=== PATIENT | male | born 1950 | race Caucasian/White ===

== ENCOUNTER 2019-06-28 15:48 | Observation (INO) ==
[2019-06-28 18:04] LABS: Basophils # (auto) 0.02 K/uL (0-0.2); Basophils % (auto) 0.3 %; Eosinophils # (auto) 0.16 K/uL (0-0.5); Eosinophils % (auto) 2.4 %; Hemoglobin 15.9 g/dL (14.0-18.0); Immature Granulocytes # (auto) 0.03 K/uL (0.00-0.02); Immature Granulocytes % (auto) 0.4 %; Lymphocytes # (auto) 2.23 K/uL (1.2-3.4); Lymphocytes % (auto) 33.1 %; Mean Corpuscular Hemoglobin 31.9 pg (25-34); Mean Corpuscular Hgb Conc 34.6 g/dL (32-36); Mean Corpuscular Volume 92.2 fL (80-100); Mean Platelet Volume 9.2 fL (7.4-10.4); Monocytes # (auto) 0.79 K/uL (0.11-0.59); Monocytes % (auto) 11.7 %; Neutrophils # (auto) 3.51 K/uL (1.4-6.5); Neutrophils % (auto) 52.1 %; Platelet Count 255 K/uL (130-400); RDW Coefficient of Variation 13.1 % (11.5-14.5); Red Blood Count 4.99 M/uL (4.7-6.1); White Blood Count 6.74 K/uL (4.8-10.8)
[2019-06-28 18:18] LABS: Alanine Aminotransferase 33 U/L (12-78); Albumin Level 4.1 gm/dl (3.4-5.0); Aspartate Aminotransferase 18 U/L (15-37); BUN Creatinine Ratio 11.8 (10-20); Blood Urea Nitrogen 17 mg/dl (7-18); Calcium 9.2 mg/dl (8.5-10.1); Carbon Dioxide 27 mmol/L (21-32); Chloride 104 mmol/L (98-107); Creatinine Clr Calc Pharmacy 54.3 ml/min; Est GFR (African American) 55.3; Est GFR (Non-African American) 47.7; Glucose 92 mg/dl (70-99); Magnesium 2.1 mg/dl (1.8-2.4); Potassium 3.6 mmol/L (3.5-5.1); Sodium 136 mmol/L (136-145)
[2019-06-28 18:20] LABS: Partial Thromboplastin Ratio 0.9; Partial Thromboplastin Time 24.1 Seconds (21.0-31.0); Prothrombin Time 9.9 Seconds (9.0-12.0)
[2019-06-28 18:23] LABS: Albumin Globulin Ratio 1.1 (0.9-2); Alkaline Phosphatase 42 U/L (45-117); Bilirubin,Total 0.9 mg/dl (0.2-1); Globulin 3.6 gm/dl (2.5-4.0); Total Protein 7.7 gm/dl (6.4-8.2); Troponin I < 0.015 ng/ml (0-0.045)
--- NOTE | 2019-06-28 18:38 | XRay Report ---
XR chest 1V portable CLINICAL HISTORY: 69 years-old Male presenting with stroke. TECHNIQUE: Portable upright AP view of the chest was obtained. COMPARISON: 09/25/2012. FINDINGS: Cardiomediastinal silhouette normal. No focal opacity. No large effusion or pneumothorax. Osseous str uctures normal. Upper abdomen normal. IMPRESSION: 1. No acute cardiopulmonary disease. ACT 112: Negative or not required by law. Electronically signed by: Mohsen Cali M.D. 06/28/2019 6:36 PM
--- NOTE | 2019-06-28 18:41 | CT Scan Report ---
CT head/brain wo con CLINICAL HISTORY: 69 years-old Male presenting with Stroke evaluation, headache. TECHNIQUE: Multidetector CT imaging of the head was performed without the use of intravenous contrast . IV contrast: None. One or more dose lowering techniques were used consistent with the principles of ALARA (as low as reasonably achievable), including automatic exposure control, mA or kV adjustment t o individual patient size, and/or use of iterative reconstruction. COMPARISON: None. CT DOSE (mGy.cm): The estimated cumulative dose is 537.48 mGy.cm. FINDINGS: Building Services Coordinator topogram: Unremarkable. Ventricles and sulci normal in size. No hemorrhage. Brain parenchyma normal in appearance with preser malathi verma-white differentiation. No acute territorial infarct. No mass effect or midline shift. No ext ra-axial fluid collection. Paranasal sinuses and mastoid air cells clear. Calvarium intact. IMPRESSION: 1. No acute intracranial abnormality. ACT 112: Negative or not required by law. Electronically signed by: Mohsen Cali M.D. 06/28/2019 6:39 PM
[2019-06-28] MEDS ORDERED: ASPIRIN CHEW 324 MG PO STA (18:42)
--- NOTE | 2019-06-28 20:03 | History & Physical Report ---
Date of Service June 28, 2019 Assessment & Plan (1) TIA (transient ischemic attack): left-sided amaurosis fugax as presentation hypertension, slightly elevated hyperlipidemia, statin noncompliance CRI, creatinine at baseline Ongoing tobacco abuse OBS PCU Neurochecks Aspirin for stroke prevention for now. MRI/MRA brain, TTE, carotid Dopplers for stroke work-up Update lipid profile, patient agreeable to resuming home statin Rx Neurology consult RE transient monocular blindness left permissive hypertension for now until acute/recent stroke ruled out Nicotine gum as needed DVT prophylaxis.. Heparin subcu Full code History of Present Illness Chief Complaint: Transient vision loss left Primary Care Provider: All Ramirez MD History obtained from patient, family, and records. Medical history significant for hypertension, hyperlipidemia, GERD, CRI (baseline creatinine 1.4), intermittent tobacco abuse. Recent confinement September 2012 for chest pain. Yesterday, patient had fleeting visual loss on the left eye on 2 occasions. As if he was "looking through a dark screen." Usual frontal headache as per patient. No previous episodes. No chest pain, no S OB. Patient directed by currency exchange specialist to ER this afternoon for further evaluation. Medical History as above Surgical History : Nasolacrimal duct tube placement, cataract surgeries Family History : Diabetes, high blood pressure Personal/Social history : Few cigarettes from time to time, occasional EtOH intake, [employer] parking employee Allergies Allergy/AdvReac Type Severity Reaction Status Date / Time No Known Allergies AdvReac Unknown ANAPHYLAXIS Unverified 06/28/19 20:06 Home Medications Home Medications Medication Instructions Recorded Confirmed Type bupropion HCl 200 mg PO BID 06/28/19 06/28/19 History citalopram 40 mg PO DAILY 06/28/19 06/28/19 History fluticasone propionate 2 spray INTRANASAL DAILY PRN 06/28/19 06/28/19 History hydrochlorothiazide 25 mg PO DAILY 06/28/19 06/28/19 History lisinopril 20 mg PO DAILY 06/28/19 06/28/19 History omeprazole 20 mg PO QAM 06/28/19 06/28/19 History aspirin [Ecotrin Low Strength] 81 mg PO QAM 30 Days #30 tab 06/29/19 Rx atorvastatin 40 mg PO HS 30 Days #30 tab 06/29/19 Rx clopidogrel 75 mg PO QAM 21 Days #21 tab 06/29/19 Rx Past Med/Surg History Medical History No pertinent past medical history Surgical History No pertinent past surgical history Social History Communication Ability: Effective Beliefs That Will Affect Care: None Current Living Situation: Spouse Feels Safe at Home: Yes Safety Concerns: Feels Safe At This Time Smoking Status: Former smoker Tobacco Type: smokeless tobacco ; Do You Dip or Chew Tobacco: Yes ; Tobacco Cessation Education Requested by Patient: No Hx Alcohol Use: Yes Alcohol type: beer Hx Substance Use: No Review of Systems Review of Systems: As per HPI, all 10 systems reviewed, all other ROS negative Physical Exam Physical Exam: GENERAL: Comfortable, slightly anxious, obese, no respiratory distress SKIN: Normal color, warm HEENT: Partial alopecia, [place] palpebral conjunctivae, no ptosis, dry buccal mucosa NECK : Supple, short neck, no tenderness CHEST : CTA, no tenderness HEART : RRR, no obvious murmurs ABDOMEN: Some distention, nontender EXTREMITIES : No LE swelling/tenderness, no other conspicuous deformities noted NEUROLOGIC : Coherent, VA WNL, no EOM limitation, no facial asymmetry, no other gross focality Results & Data Vital Signs (Past 12 Hours) Vital Signs Temp Pulse Pulse Resp BP BP Pulse Ox 06/28/19 17:49 67 16 146/84 H 98 06/28/19 15:53 36.9 C 76 20 150/94 H 97 Laboratory Results Laboratory Results WBC 6.74 K/uL (4.8-10.8) 06/28/19 17:43 RBC 4.99 M/uL (4.7-6.1) 06/28/19 17:43 Hgb 15.9 g/dL (14.0-18.0) 06/28/19 17:43 Hct 46.0 % (42-52) 06/28/19 17:43 MCV 92.2 fL (80-100) 06/28/19 17:43 MCH 31.9 pg (25-34) 06/28/19 17:43 MCHC 34.6 g/dL (32-36) 06/28/19 17:43 RDW Std Deviation 44.0 fL (36.4-46.3) 06/28/19 17:43 RDW Coeff of Kezia 13.1 % (11.5-14.5) 06/28/19 17:43 Plt Count 255 K/uL (130-400) 06/28/19 17:43 MPV 9.2 fL (7.4-10.4) 06/28/19 17:43 Immature Gran % (Auto) 0.4 % 06/28/19 17:43 Neut % (Auto) 52.1 % 06/28/19 17:43 Lymph % (Auto) 33.1 % 06/28/19 17:43 [place] % (Auto) 11.7 % 06/28/19 17:43 Eos % (Auto) 2.4 % 06/28/19 17:43 Baso % (Auto) 0.3 % 06/28/19 17:43 Immature Gran # (Auto) 0.03 K/uL (0.00-0.02) H 06/28/19 17:43 Neut # (Auto) 3.51 K/uL (1.4-6.5) 06/28/19 17:43 Lymph # (Auto) 2.23 K/uL (1.2-3.4) 06/28/19 17:43 [place] # (Auto) 0.79 K/uL (0.11-0.59) H 06/28/19 17:43 Eos # (Auto) 0.16 K/uL (0-0.5) 06/28/19 17:43 Baso # (Auto) 0.02 K/uL (0-0.2) 06/28/19 17:43 PT 9.9 Seconds (9.0-12.0) 06/28/19 17:43 INR 1.0 (0.9-1.1) 06/28/19 17:43 APTT 24.1 Seconds (21.0-31.0) 06/28/19 17:43 PTT Ratio 0.9 06/28/19 17:43 Sodium 136 mmol/L (136-145) 06/28/19 17:43 Potassium 3.6 mmol/L (3.5-5.1) 06/28/19 17:43 Chloride 104 mmol/L (98-107) 06/28/19 17:43 Carbon Dioxide 27 mmol/L (21-32) 06/28/19 17:43 Anion Gap 5.0 (3-11) 06/28/19 17:43 BUN 17 mg/dl (7-18) 06/28/19 17:43 Creatinine 1.46 mg/dl (0.6-1.4) H 06/28/19 17:43 Est Cr Clr Drug Dosing 54.3 ml/min 06/28/19 17:43 Est GFR ( Amer) 55.3 06/28/19 17:43 Est GFR (Non-Af Amer) 47.7 06/28/19 17:43 BUN/Creatinine Ratio 11.8 (10-20) 06/28/19 17:43 Glucose 92 mg/dl (70-99) 06/28/19 17:43 Calcium 9.2 mg/dl (8.5-10.1) 06/28/19 17:43 Magnesium 2.1 mg/dl (1.8-2.4) 06/28/19 17:43 Total Bilirubin 0.9 mg/dl (0.2-1) 06/28/19 17:43 AST 18 U/L (15-37) 06/28/19 17:43 ALT 33 U/L (12-78) 06/28/19 17:43 Alkaline Phosphatase 42 U/L (45-117) L 06/28/19 17:43 Troponin I < 0.015 ng/ml (0-0.045) 06/28/19 17:43 Total Protein 7.7 gm/dl (6.4-8.2) 06/28/19 17:43 Albumin 4.1 gm/dl (3.4-5.0) 06/28/19 17:43 Globulin 3.6 gm/dl (2.5-4.0) 06/28/19 17:43 Albumin/Globulin Ratio 1.1 (0.9-2) 06/28/19 17:43 Blood Type A Positive 06/28/19 17:43 Antibody Screen NEGATIVE 06/28/19 17:[address] head: No acute intracranial abnormality Chest x-ray : No acute cardiopulmonary disease EKG as per my interpretation : Rate 65, NSR, normal axis, T wave flattening inferiorly
[2019-06-28] MEDS ORDERED: ATORVASTATIN 20 MG TAB PO SCH (21:00)
[2019-06-28] MEDS ORDERED: PROMETHAZINE HCL 12.5 MG in SODIUM CHLORIDE 0.9% 50 ML IV PRN (21:21)
[2019-06-28] MEDS ORDERED: PHARMACIST DISCHARGE MED REC CONSULT PRN (21:21)
[2019-06-28] MEDS ORDERED: LORazepam 0.25 MG/0.5 ML VIAL IV PRN (21:21)
[2019-06-28] MEDS ORDERED: ACETAMINOPHEN 325 MG TAB PO PRN (21:21)
[2019-06-28] MEDS ORDERED: NSS + 20MEQ KCL 20 MEQ/1,000 ML BAG IV ONE (21:21)
[2019-06-28] MEDS ORDERED: TRAMADOL HCL 50 MG TABLET PO PRN (21:21)
--- NOTE | 2019-06-28 21:43 | Emergency Department Note ---
Entered by Sue Mcfarlane acting as a scribe for History of Present Illness General Chief complaint: Visual Disturbance Stated complaint: FLOATERS IN LT EYE Time Seen by Provider: 06/28/19 17:35 Source: patient History of Present Illness Onset (ago): day(s) 1 Location: eyes Pain Consistency: + intermittent Maximum Pain Intensity: 0 Current Pain Intensity: 0 Exacerbated By: + none Associated symptoms: + denies other symptoms (denies numbness and tingling) and + other (visual disturbances); no weakness Treatments prior to arrival: none The patient is a 69 year old male who presents to the Emergency Room with complaints of visual disturbances that occurred last night. He reports that everything went black in his left eye for a few seconds. This lasted less than a minute, but prompted him to visit his eye doctor. The patient visited his insurance office manager today, Dr. Cisse, who was concerned for TIA for the patient. He notes that he did have his left eye dilated while at his appointment. He denies numbness, tingling, and weakness. Home Medications Home Medications Medication Instructions Recorded Confirmed Type bupropion HCl 200 mg PO BID 06/28/19 06/28/19 History citalopram 40 mg PO DAILY 06/28/19 06/28/19 History fluticasone propionate 2 spray INTRANASAL DAILY PRN 06/28/19 06/28/19 History hydrochlorothiazide 25 mg PO DAILY 06/28/19 06/28/19 History lisinopril 20 mg PO DAILY 06/28/19 06/28/19 History omeprazole 20 mg PO QAM 06/28/19 06/28/19 History Allergies Allergy/AdvReac Type Severity Reaction Status Date / Time No Known Allergies AdvReac Unknown ANAPHYLAXIS Unverified 06/28/19 20:06 Past Med/Surg History Medical History No pertinent past medical history Surgical History No pertinent past surgical history Social History Communication Ability: Effective Beliefs That Will Affect Care: None Current Living Situation: Spouse Feels Safe at Home: Yes Safety Concerns: Feels Safe At This Time Smoking Status: Former smoker Tobacco Type: smokeless tobacco ; Do You Dip or Chew Tobacco: Yes ; Tobacco Cessation Education Requested by Patient: No Hx Alcohol Use: Yes Alcohol type: beer Hx Substance Use: No Review of Systems See HPI for pertinent positives & negatives. and A total of 10 systems reviewed and were otherwise negative Physical Exam Vital Signs Vital Signs - 24 hr 06/28/19 15:53 06/28/19 17:49 Temperature 36.9 C Temperature Source Oral Pulse Rate 76 Pulse Rate [Apical] 67 Respiratory Rate 20 16 Respiratory Effort / Characteristics Non-Labored Respiratory Depth Normal Respiratory Pattern Regular Blood Pressure 150/94 H Blood Pressure [Left Arm] 146/84 H Blood Pressure Mean 112 Blood Pressure Mean [Left Arm] 104 Pulse Oximetry 97 98 Oxygen Delivery Method Room Air Room Air Sepsis Recent Fever Within 48 Hours No Sepsis Action Taken by Nursing No Action Required GENERAL: He is oriented to person, place, and time. He appears well-developed and well-nourished. He does not appear distressed. HENT: Exam performed. - Head: Normocephalic and atraumatic. - Right Ear: External ear normal. No mastoid tenderness. - Left Ear: External ear normal. No mastoid tenderness. - Mouth/Throat: The oropharynx is clear and moist. No trismus in the jaw. No dental abscesses or uvula swelling. No oropharyngeal exudate or tonsillar abscesses. EYES: Left pupil is 4mm and reactive. Eye was previously dilated by insurance office manager. Right pupil was 2 mm and reactive. Conjunctivae and EOM are n ormal. Right eye exhibits no discharge. Left eye exhibits no discharge. No scleral icterus. NECK: Normal range of motion. Neck supple. No JVD present. No spinous process tenderness present. No carotid bruit present. No rigidity. No tracheal deviation and normal range of motion present. No Brudzinski's sign and no Kernig's sign noted. CV: Normal rate, regular rhythm, normal heart sounds and intact distal pulses. There is no peripheral edema. Palpable radial pulses bue. PULM/CHEST: Effort normal and breath sounds normal. No respiratory distress. No stridor. He has no wheezes. He has no rales. - Chest Wall: He exhibits no tenderness. ABD: The abdomen is soft. Bowel sounds are normal. He has no distension. No mass is present. There is no tenderness. There is no rebound, no guarding, no Garcia 's sign and no tenderness at McBurney's point. Rovsig negative. MUSC/SKEL: Normal range of motion. There is no peripheral edema, tenderness or deformity. LYMPH: No cervical adenopathy. NEURO: NIHSS: 0. He is alert and oriented to person, place, and time. He has normal strength. No cranial nerve deficit or sensory deficit. Coordination and gait normal. GCS eye subscore is 4. GCS verbal subscore is 5. GCS motor subscore is 6. Cerebellar tests wnl. SKIN: Skin is warm and dry. He is not diaphoretic. PSYCH: He has a normal mood and affect. Behavior is normal. Judgment and thought content normal. Course Course 173: Past medical records reviewed. The patient was evaluated in room A04B. A complete history and physical exam was performed. 183: I updated the patient on lab and imaging results. His vital signs are stable and labs within normal limits. The patient was given Aspirin PO. 1845: I spoke to Brian Mooney, who agreed to take over care of the patient. The patient verbally expressed understanding and agreement of the treatment plan. The patient will be evaluated for further treatment by Brian Jj. Administered Medications Atorvastatin Calcium (Lipitor) 20 mg PO HS PAT Stop: 07/28/19 20:59 Last Admin: 06/28/19 22:22 Dose: 20 mg Documented by: [id number] Bupropion HCl (Wellbutrin-Sr) 200 mg PO BID PAT Stop: 07/28/19 21:20 Last Admin: 06/28/19 22:21 Dose: 200 mg Documented by: [id number] Heparin Sodium (Porcine) (Heparin Sodium (Porcine)) 5,000 units SQ Q8 PAT Stop: 07/28/19 21:59 Last Admin: 06/28/19 22:21 Dose: 5,000 units Documented by: [id number] Cosigned by: [id number] Potassium Chloride/Sodium Chloride (Normal Saline W/20 Meq Kcl) 20 meq in 1,000 mls @ 60 mls/hr IV .[id number] ONE Stop: 06/29/19 14:00 Last Admin: 06/28/19 22:20 Dose: 60 mls/hr Documented by: [id number] Discontinued Medications Aspirin (Aspirin) 324 mg PO NOW STA Stop: 06/28/19 18:43 Last Admin: 06/28/19 18:46 Dose: 324 mg Documented by: [id number] Medical Decision Making Medical Records Attestation: I reviewed the patient's medical records. Home Medications Current Medication List: was personally reviewed by me Laboratory Data Attestation: I reviewed the patient's lab results. Result diagrams: 06/28/19 17:43 06/28/19 17:43 Lab Results 06/28/19 06/28/19 06/28/19 Range/Units 17:43 17:43 17:43 WBC 6.74 (4.8-10.8) K/uL RBC 4.99 (4.7-6.1) M/uL Hgb 15.9 (14.0-18.0) g/dL Hct 46.0 (42-52) % MCV 92.2 (80-100) fL MCH 31.9 (25-34) pg MCHC 34.6 (32-36) g/dL RDW Std Deviation 44.0 (36.4-46.3) fL RDW Coeff of Kezia 13.1 (11.5-14.5) % Plt Count 255 (130-400) K/uL MPV 9.2 (7.4-10.4) fL Immature Gran % (Auto) 0.4 % Neut % (Auto) 52.1 % Lymph % (Auto) 33.1 % [place] % (Auto) 11.7 % Eos % (Auto) 2.4 % Baso % (Auto) 0.3 % Immature Gran # (Auto) 0.03 H (0.00-0.02) K/uL Neut # (Auto) 3.51 (1.4-6.5) K/uL Lymph # (Auto) 2.23 (1.2-3.4) K/uL [place] # (Auto) 0.79 H (0.11-0.59) K/uL Eos # (Auto) 0.16 (0-0.5) K/uL Baso # (Auto) 0.02 (0-0.2) K/uL PT 9.9 (9.0-12.0) Seconds INR 1.0 (0.9-1.1) APTT 24.1 (21.0-31.0) Seconds PTT Ratio 0.9 Sodium 136 (136-145) mmol/L Potassium 3.6 (3.5-5.1) mmol/L Chloride 104 (98-107) mmol/L Carbon Dioxide 27 (21-32) mmol/L Anion Gap 5.0 (3-11) BUN 17 (7-18) mg/dl Creatinine 1.46 H (0.6-1.4) mg/dl Est Cr Clr Drug Dosing 54.3 ml/min Est GFR ( Amer) 55.3 Est GFR (Non-Af Amer) 47.7 BUN/Creatinine Ratio 11.8 (10-20) Glucose 92 (70-99) mg/dl Calcium 9.2 (8.5-10.1) mg/dl Magnesium 2.1 (1.8-2.4) mg/dl Total Bilirubin 0.9 (0.2-1) mg/dl AST 18 (15-37) U/L ALT 33 (12-78) U/L Alkaline Phosphatase 42 L (45-117) U/L Troponin I < 0.015 (0-0.045) ng/ml Total Protein 7.7 (6.4-8.2) gm/dl Albumin 4.1 (3.4-5.0) gm/dl Globulin 3.6 (2.5-4.0) gm/dl Albumin/Globulin Ratio 1.1 (0.9-2) Blood Type Antibody Screen 06/28/19 Range/Units 17:43 WBC (4.8-10.8) K/uL RBC (4.7-6.1) M/uL Hgb (14.0-18.0) g/dL Hct (42-52) % MCV (80-100) fL MCH (25-34) pg MCHC (32-36) g/dL RDW Std Deviation (36.4-46.3) fL RDW Coeff of Kezia (11.5-14.5) % Plt Count (130-400) K/uL MPV (7.4-10.4) fL Immature Gran % (Auto) % Neut % (Auto) % Lymph % (Auto) % [place] % (Auto) % Eos % (Auto) % Baso % (Auto) % Immature Gran # (Auto) (0.00-0.02) K/uL Neut # (Auto) (1.4-6.5) K/uL Lymph # (Auto) (1.2-3.4) K/uL [place] # (Auto) (0.11-0.59) K/uL Eos # (Auto) (0-0.5) K/uL Baso # (Auto) (0-0.2) K/uL PT (9.0-12.0) Seconds INR (0.9-1.1) APTT (21.0-31.0) Seconds PTT Ratio Sodium (136-145) mmol/L Potassium (3.5-5.1) mmol/L Chloride (98-107) mmol/L Carbon Dioxide (21-32) mmol/L Anion Gap (3-11) BUN (7-18) mg/dl Creatinine (0.6-1.4) mg/dl Est Cr Clr Drug Dosing ml/min Est GFR ( Amer) Est GFR (Non-Af Amer) BUN/Creatinine Ratio (10-20) Glucose (70-99) mg/dl Calcium (8.5-10.1) mg/dl Magnesium (1.8-2.4) mg/dl Total Bilirubin (0.2-1) mg/dl AST (15-37) U/L ALT (12-78) U/L Alkaline Phosphatase (45-117) U/L Troponin I (0-0.045) ng/ml Total Protein (6.4-8.2) gm/dl Albumin (3.4-5.0) gm/dl Globulin (2.5-4.0) gm/dl Albumin/Globulin Ratio (0.9-2) Blood Type A Positive Antibody Screen NEGATIVE Imaging Data Radiologist's Impression: Radiology results as stated below per my review and the radiologist's interpretation: CT head/brain wo con CLINICAL HISTORY: 69 years-old Male presenting with Stroke evaluation, headache. TECHNIQUE: Multidetector CT imaging of the head was performed without the use of intravenous contrast. IV contrast: None. One or more dose lowering techniques were used consistent with the principles of ALARA (as low as reasonably achievab le), including automatic exposure control, mA or kV adjustment to individual patient size, and/or use of iterative reconstruction. COMPARISON: None. CT DOSE (mGy.cm): The estimated cumulative dose is 537.48 mGy.cm. FINDINGS: Shearing Supervisor topogram: Unremarkable. Ventricles and sulci normal in size. No hemorrhage. Brain parenchyma normal in appearance with preserved verma-white differentiation. No acute territorial infarct. No mass effect or midline shift. No extra-axial fluid collection. Paranasal sinuses and mastoid air cells clear. Calvarium intact. IMPRESSION: 1. No acute intracranial abnormality. ACT 112: Negative or not required by law. Electronically signed by: Mohsen Cali M.D. 06/28/2019 6:39 PM XR chest 1V portable CLINICAL HISTORY: 69 years-old Male presenting with stroke. TECHNIQUE: Portable upright AP view of the chest was obtained. COMPARISON: 09/25/2012. FINDINGS: Cardiomediastinal silhouette normal. No focal opacity. No large effusion or pneumothorax. Osseous structures normal. Upper abdomen normal. IMPRESSION: 1. No acute cardiopulmonary disease. ACT 112: Negative or not required by law. Electronically signed by: Mohsen Cali M.D. 06/28/2019 6:36 PM ECG Data Attestation: I personally reviewed and interpreted this ECG as follows: Indication: + other (vision changes) Rate (beats per minute): 65 Rhythm: + sinus rhythm ECG Intervals/blocks: + Normal QT, + Normal HI and + Normal QT-c ECG ST segments: + ST depression (in lead 3 only) Blood Pressure Blood Pressure Findings: Elevated blood pressure Blood Pressure Disposition: further management by hospitalist Impression & Plan TIA (transient ischemic attack) Discharge Plan Visit Data *Final* Discharge Date/Time: 06/28/19 20:42 Chief Complaint: Visual Disturbance Stated Complaint: FLOATERS IN LT EYE ED Provider: Matt Kaufman Discharge Problem: TIA (transient ischemic attack) Patient Disposition: Admitted As Inpatient Discharge Instructions Interventions: ED Discharge Assessment Last Done: 06/28/19 20:42 The scribe's documentation has been prepared under my direction and personally reviewed by me in its entirety. I confirm that the note above accurately reflects all work, treatment, procedures, and medical decision making performed by me.
[2019-06-28] MEDS: HEPARIN SOD 5,000 UNIT/0.5 ML VIAL SQ SCH (22:21)
[2019-06-28] MEDS: BuPROPion SR 100 MG TABCR PO SCH (22:21)
[2019-06-29] MEDS: HEPARIN SOD 5,000 UNIT/0.5 ML VIAL SQ SCH ×2 (05:37→14:32)
--- NOTE | 2019-06-29 07:09 | Ultrasound Report ---
CAROTID ARTERY ULTRASOUND CLINICAL HISTORY: Transient ischemic attack. COMPARISON STUDY: None. TECHNIQUE: Real-time, grayscale, and color Doppler sonography of the carotid and vertebral arteries w as performed. Images were viewed in the transverse and longitudinal planes. FINDINGS: There is mild atherosclerotic plaque. Velocity measurements are listed below. COMMON CAROTID PEAK SYSTOLIC VELOCITY (CM/S): RIGHT 84 LEFT 80 ICA PEAK SYSTOLIC VELOCITY (CM/S): RIGHT 65 LEFT 79 Systolic ratios between the internal to common carotid arteries were normal. Antegrade flow is seen in the vertebral arteries. The external carotid arteries are patent. Blood pressure in the right arm measured 122/72. Blood pressure in the left arm measured 125/76. IMPRESSION: No evidence for a hemodynamically significant stenosis. ACT 112: Negative or not required by law. Electronically signed by: Armin Andres M.D. 06/29/2019 7:07 AM
[2019-06-29 07:10] LABS: Basophils # (auto) 0.02 K/uL (0-0.2); Basophils % (auto) 0.4 %; Eosinophils # (auto) 0.13 K/uL (0-0.5); Eosinophils % (auto) 2.7 %; Immature Granulocytes # (auto) 0.02 K/uL (0.00-0.02); Immature Granulocytes % (auto) 0.4 %; Lymphocytes # (auto) 1.78 K/uL (1.2-3.4); Lymphocytes % (auto) 37.3 %; Mean Corpuscular Hemoglobin 31.9 pg (25-34); Mean Corpuscular Hgb Conc 34.1 g/dL (32-36); Mean Corpuscular Volume 93.6 fL (80-100); Monocytes # (auto) 0.66 K/uL (0.11-0.59); Monocytes % (auto) 13.8 %; Neutrophils # (auto) 2.16 K/uL (1.4-6.5); Neutrophils % (auto) 45.4 %; Platelet Count 196 K/uL (130-400); RDW Coefficient of Variation 13.1 % (11.5-14.5); RDW Standard Deviation 44.9 fL (36.4-46.3); White Blood Count 4.77 K/uL (4.8-10.8)
--- NOTE | 2019-06-29 07:21 | Magnetic Resonance Report ---
Brain MRI WITHOUT CONTRAST HISTORY: Transient ischemic attack. Left vision abnormality. TECHNIQUE: Multiplanar multisequence MRI of the brain was performed without the use of contrast. COMPARISON STUDY: Head CT 06/28/2019. FINDINGS: There are no areas of restricted diffusion to suggest acute infarction. The midline structu res are intact. The paranasal sinuses are clear. The mastoid air cells are clear. The ventricles and sulci are within normal limits for age. There is no mass, hematoma, midline shift. The major vascular flow-voids at the skull base are well maintained. Bilateral lens removal. Otherwise, the orbits are unremarkable. IMPRESSION: No acute intracranial abnormality. ACT 112: Negative or not required by law. Electronically signed by: Maximilian Sandhu M.D. 06/29/2019 7:20 AM
--- NOTE | 2019-06-29 07:26 | Magnetic Resonance Report ---
MRA OF THE INTRACRANIAL CIRCULATION WITHOUT CONTRAST CLINICAL HISTORY: Transient ischemic attack. COMPARISON STUDY: Head CT June 28, 2019. TECHNIQUE: Utilizing a 1.5 Merlyn magnet and 3-D [id number] technique, unenhanced MRA of the intra cranial circulation was obtained. FINDINGS: The bilateral M1, M2, A1 and A2 segments are patent. There is no intracranial aneurysm. The re is no evidence for dissection or intraluminal thrombus. There is severe stenosis of the distal lef t vertebral artery. The right vertebral artery is dominant. There is a large right posterior communic ating artery. An anterior communicating artery is noted. The right A1 segment is diminutive, likely h ypoplastic. IMPRESSION: 1. No abrupt vessel cut off, intraluminal thrombus or intracranial aneurysm. 2. 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 Dominant right vertebral artery. 3. 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 ACT 112: Negative or not required by law. Electronically signed by: Armin Andres M.D. 06/29/2019 7:25 AM
[2019-06-29 07:40] LABS: BUN Creatinine Ratio 12.9 (10-20); Calcium 9.1 mg/dl (8.5-10.1); Est GFR (African American) 56.7; Est GFR (Non-African American) 48.9; Potassium 4.1 mmol/L (3.5-5.1)
[2019-06-29 07:53] LABS: Thyroid Stimulating Hormone 1.59 uIu/ml (0.300-4.500)
[2019-06-29] MEDS ORDERED: CITALOPRAM 40 MG TAB PO SCH (09:00)
[2019-06-29] MEDS ORDERED: PANTOprazole 40 MG TAB PO SCH (09:00)
[2019-06-29] MEDS ORDERED: ASPIRIN 81 MG ECTAB PO SCH (09:00)
[2019-06-29] MEDS: BuPROPion SR 100 MG TABCR PO SCH (10:02)
[2019-06-29] MEDS ORDERED: ACETAMINOPHEN 325 MG TAB PO PRN (10:05)
--- NOTE | 2019-06-29 14:12 | Neurology Consultation ---
Date of Consultation June 29, 2019 Assessment & Plan (1) TIA (transient ischemic attack): 1. MRI brain - no acute findings 2. carotid doppler - no significant stenosis 3. MRA brain severe stenosis L vert 4. TTE ordered but not done 5. PT/OT speech no current needs 6. start aspirin 81 mg and plavix 75 mg daily x 3 weeks then aspirin 81 mg for a life time 7. optimize HTN, HLD, DM LDL <70 looks to be pre DM 8. discussed tobacco abuse and healthy life style and diet 9. follow up with PCP and ophthalmology as scheduled neurology follow up in 4-6 weeks Carlos Perea PAC schedule- requested Supervising Physician Co-Signing Physician Notes Patient was seen and examined. Agree with Carlos Perea Pa-c as noted below. A 69 year old male with intermittent left eye visual loss. Now back to baseline. No pain. No other symptoms. Back to baseline. Normal appearing MRI brain. MRA shows no carotid stenosis. Right vertebral artery is dominant. Symptoms suggestive or concerning for amaurosis fugax. On examine EOMI, pupils symmetric and reactive, and VF are full to confrontation. Agree with dual antiplatelet therapy for 21-days and high intensity statin. Blood pressure goals SBP<140 or DBP<90 mm Hg. Transthoracic echocardiogram with shunt as outpatient if patient desires. Neurology follow up with Carlos Perea Pa-C. History of Present Illness Reason for Consultation: transient vision loss L eye Requesting Physician: Feliberto Hawkins MD Attending Physician: Feilberto Hawkins MD History of Present Illness Christopher is a 69 year old male with PMH - HTN, HLD presented to [facility] ED with . He states there was a graying out of vision in his left eye for a few seconds. He went to his ophthalmologistm Dr. Cisse, who was concerned for TIA for the patient. He notes that he did have his left eye dilated while at his appointment and reportedly saw no reason for the event. He has floaters in both his eyes but never a graying out of vision. He admits to not taking his cholesterol medication but does take is blood pressure medications. He was not on aspirin prior to this event. He chews snuff, drinks 10 beers every week end, works billing department supervisor, minimal caffeine use. Denies any family history of stroke. denies CP, SOB, abdominal pain, one sided weakness, numbness tingling, N, V, swallowing issues, balance issues, current vision changes. Allergies Allergy/AdvReac Type Severity Reaction Status Date / Time No Known Allergies AdvReac Unknown ANAPHYLAXIS Unverified 06/28/19 20:06 Home Medications Home Medications Medication Instructions Recorded Confirmed Type bupropion HCl 200 mg PO BID 06/28/19 06/28/19 History citalopram 40 mg PO DAILY 06/28/19 06/28/19 History fluticasone propionate 2 spray INTRANASAL DAILY PRN 06/28/19 06/28/19 History hydrochlorothiazide 25 mg PO DAILY 06/28/19 06/28/19 History lisinopril 20 mg PO DAILY 06/28/19 06/28/19 History omeprazole 20 mg PO QAM 06/28/19 06/28/19 History aspirin [Ecotrin Low Strength] 81 mg PO QAM 30 Days #30 tab 06/29/19 Rx atorvastatin 40 mg PO HS 30 Days #30 tab 06/29/19 Rx clopidogrel 75 mg PO QAM 21 Days #21 tab 06/29/19 Rx ranitidine HCl 150 mg PO DAILY #30 cap 06/29/19 Rx Patient History Medical History No pertinent past medical history Surgical History No pertinent past surgical history Social History Communication Ability: Effective Beliefs That Will Affect Care: None Current Living Situation: Spouse Feels Safe at Home: Yes Safety Concerns: Feels Safe At This Time Smoking Status: Former smoker Tobacco Type: smokeless tobacco ; Do You Dip or Chew Tobacco: Yes ; Tobacco Cessation Education Requested by Patient: No Hx Alcohol Use: Yes Alcohol type: beer Hx Substance Use: No Physical Exam Physical Exam: Physical Exam: Constitutional: appearance over nourished, healthy Ears, Nose, Mouth and Throat: mucous membranes moist, no injection and skin normal, eyes normal Cardiovascular: normal S-1 and S-2 and regular rate and rhythm Respiratory: clear to auscultation (CTA) and no rales, rhonchi or wheeze Musculoskeletal: no peripheral edema and good distal pulses Skin: no stigmata of neurocutaneous disease noted and normal and intact Eyes: extraocular muscles intact (EOMI) and pupils equal, round and reactive to light (PERRL) NEUROLOGIC EXAMINATION: Mental status: Alert and interactive Oriented to full date and location Oriented to person Speech fluent with no evidence of aphasia Cranial Nerves smile eye brow raise symmetric Reflexes: Deep tendon reflexes were symmetrical and graded 2/5. down going toes Sensory: intact to light cool touch, GT proprioception intact bilaterally Coordination: finger to nose heel to rene, rapid hand movement intact bilaterally Gait/Stance: Posture normal. sitting up in bed Motor: Negative for pronator drift of out stretched arms with eyes closed. 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/5, hip flex 5/5 plantar flex ext 5/5 Results & Data Vital Signs (Past 12 Hours) Vital Signs Temp Pulse Pulse Resp BP Pulse Ox 06/29/19 12:18 36.4 C L 61 20 131/83 93 06/29/19 07:04 36.4 C L 55 L 18 102/64 96 06/29/19 03:17 36.4 C L 58 L 18 111/71 96 Laboratory Results Abnormal lab results 06/28/19 06/28/19 06/29/19 Range/Units 17:43 17:43 06:49 WBC 4.77 L (4.8-10.8) K/uL Immature Gran # (Auto) 0.03 H (0.00-0.02) K/uL Alcorn # (Auto) 0.79 H 0.66 H (0.11-0.59) K/uL Creatinine 1.46 H (0.6-1.4) mg/dl Glucose (70-99) mg/dl Alkaline Phosphatase 42 L (45-117) U/L Triglycerides (0-150) mg/dl Cholesterol (0-200) mg/dl 06/29/19 Range/Units 06:49 WBC (4.8-10.8) K/uL Immature Gran # (Auto) (0.00-0.02) K/uL Alcorn # (Auto) (0.11-0.59) K/uL Creatinine 1.43 H (0.6-1.4) mg/dl Glucose 117 H (70-99) mg/dl Alkaline Phosphatase (45-117) U/L Triglycerides 218 H (0-150) mg/dl Cholesterol 232 H (0-200) mg/dl Diagnostic Findings CT head-No acute intracranial abnormality. CXR- No acute cardiopulmonary disease. MRI brain- here are no areas of restricted diffusion to suggest acute infarction. The midline structures are intact. The paranasal sinuses are clear. The mastoid air cells are clear. The ventricles and sulci are within normal limits for age. There is no mass, hematoma, midline shift. The major vascular flow-voids at the skull base are well maintained. Bilateral lens removal. Otherwise, the orbits are unremarkable. carotid doppler- No evidence for a hemodynamically significant stenosis. MRA head-. No abrupt vessel cut off, intraluminal thrombus or intracranial aneurysm. 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 Dominant right vertebral artery. 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
[2019-06-29] MEDS ORDERED: CLOPIDOGREL BISULFATE 75 MG TAB PO ONE (15:30)
[2019-06-29] MEDS ORDERED: STROKE PATIENT DISCHARGE STA (16:20)
--- NOTE | 2019-06-29 16:27 | Hospitalist Progress Note ---
Date of Service June 29, 2019 Assessment & Plan (1) TIA (transient ischemic attack): amaurosis fugax of left eye Hypertension Dyslipidemia Gastroesophageal Reflux -This is a patient for had transient loss of vison of left eye on Friday06/27/2019 which lasted for 10 seconds and self resolved. Patient's then discussed with opthamologist on the phone on Friday06/28/2019 and patient was advised to be evaluated in the hospital -Patient was placed under observation for further workup - no further vision problems to date -imaging scans generally unremarkable of Heacd CT, Brain MRI, carotid dopplers. Head MRA: No abrupt vessel cut off, intraluminal thrombus or intracranial aneurysm. 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 Dominant right vertebral artery. 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 The Head MRA results to be managed medically -patient was evalauated by neurology on 06/29/2019 and hospitalists following recommendations on medical management -aspirin 81 mg and clopidogrel (plavix) 75 mg daily for 3 weeks then aspirin 81 mg for a life time to lower stroke risks home omeprazole medication can have drug interactions with clopidogrel so ranitidine is prescribed as substitute for Gastroesophageal Reflux atorvastatin as 40 mg daily to lower stroke risks (target LDL should be less than 70) and to treat dyslipidemia -discharge prescriptions sent electronically to [facility] pharmacy [facility] [place] [address] -Patient may continue home dose Lisinopril and Hydrochlorothiazide. Patient should follow up with primary care doctor to monitor blood pressure so that it meets a goal to less than 140/90 -echocardiogram was performed on 06/29/2019 in the hospital to rule out atrial septal defect; patient wishes to follow up echocardiogram results with primary care doctor -appointments 07/06/2019 11:00 AM Provider All Ramirez MD Department [facility] 08/02/2019 8:00 AM Provider Emilia Perea PA-C Department Neurology [facility] Discharge Diagnosis: TIA (transient ischemic attack), amaurosis fugax of left eye, Dyslipidemia, Hypertension, Gastroesophageal Reflux Subjective Patient seen and examined at bedside. no visionl issues during hospital stay. no headache. no dizziness. no chest pain. no palpitations. no abdominal pain. no nausea. no vomiting. patient is ambulatory Review of Systems Review of Systems: All systems reviewed & are unremarkable except as noted in HPI & below Physical Exam Constitutional: comfortable Eyes: PERRL, conjunctivae normal, anicteric sclerae EOM intact bilaterally ENMT: external ear and nose normal, oropharynx normal Neck: normal visual inspection Respiratory: normal respiratory effort, lungs clear to auscultation Cardiovascular: Rate/Rhythm: regular rate and regular rhythm Musculoskeletal: Head/Neck/Chest: normocephalic and head atraumatic Neurologic: PERRL, EOMI, accommodation nl, no face palsy, no dysarthria CN's II-XI intact bilaterally Psychiatric: A+Ox3, euthymic affect Results & Data Vital Signs (Past 12 Hours) Vital Signs Temp Pulse Pulse Resp BP BP Pulse Ox 06/29/19 15:19 36.8 C 66 18 162/89 H 94 06/29/19 12:18 36.4 C L 61 20 131/83 93 06/29/19 08:00 55 L 06/29/19 07:04 36.4 C L 55 L 18 102/64 96
--- NOTE | 2019-06-29 16:35 | Discharge Summary ---
Date of Service June 29, 2019 Admission HPI Per Admitting Provider History obtained from patient, family, and records. Medical history significant for hypertension, hyperlipidemia, GERD, CRI (baseline creatinine 1.4), intermittent tobacco abuse. Recent confinement September 2012 for chest pain. Yesterday, patient had fleeting visual loss on the left eye on 2 occasions. As if he was "looking through a dark screen." Usual frontal headache as per patient. No previous episodes. No chest pain, no S OB. Patient directed by blacktop paver operator to ER this afternoon for further evaluation. Medical History as above Surgical History : Nasolacrimal duct tube placement, cataract surgeries Family History : Diabetes, high blood pressure Personal/Social history : Few cigarettes from time to time, occasional EtOH intake, [employer] parking employee Admission Exam Per Admitting Provider GENERAL: Comfortable, slightly anxious, obese, no respiratory distress SKIN: Normal color, warm HEENT: Partial alopecia, Eagle palpebral conjunctivae, no ptosis, dry buccal mucosa NECK : Supple, short neck, no tenderness CHEST : CTA, no tenderness HEART : RRR, no obvious murmurs ABDOMEN: Some distention, nontender EXTREMITIES : No LE swelling/tenderness, no other conspicuous deformities noted NEUROLOGIC : Coherent, VA WNL, no EOM limitation, no facial asymmetry, no other gross focality Principal Diagnosis TIA (transient ischemic attack), amaurosis fugax of left eye, Dyslipidemia, Hypertension, Gastroesophageal Reflux Discharge Exam Constitutional WD/WN, vitals as above Eyes PERRL, conjunctivae normal, anicteric sclerae EOM intact bilaterally ENMT external ear and nose normal, oropharynx normal Neck normal visual inspection Respiratory normal respiratory effort, lungs clear to auscultation Cardiovascular RRR, no murmur, no edema Gastrointestinal (Abdomen) normal bowel sounds, soft, nontender, no hepatosplenomegaly Musculoskeletal Head/Neck/Chest: normocephalic and head atraumatic Neurologic PERRL, EOMI, accommodation nl, no face palsy, no dysarthria CN's II-XI intact bilaterally Psychiatric A+Ox3, euthymic affect Discharge Data Allergies Allergy/AdvReac Type Severity Reaction Status Date / Time No Known Allergies AdvReac Unknown ANAPHYLAXIS Unverified 06/28/19 20:06 Consultations 06/28/19 18:46 ED Decision to Admit Stat 06/28/19 21:21 Consult Case Management - Discharge Planning Routine Consult Neurology Routine Ordered Studies 06/28/19 17:38 CT head/brain wo con Stat 06/28/19 21:21 MR angio head wo con Routine MR brain wo con Routine US carotid doppler BI Routine Hospital Course (1) TIA (transient ischemic attack): amaurosis fugax of left eye Hypertension Dyslipidemia Gastroesophageal Reflux -This is a patient for had transient loss of vison of left eye on Friday06/27/2019 which lasted for 10 seconds and self resolved. Patient's then discussed with opthamologist on the phone on Friday06/28/2019 and patient was advised to be evaluated in the hospital -Patient was placed under observation for further workup - no further vision problems to date -imaging scans generally unremarkable of Heacd CT, Brain MRI, carotid dopplers. Head MRA: No abrupt vessel cut off, intraluminal thrombus or intracranial aneurysm. 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 Dominant right vertebral artery. 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 The Head MRA results to be managed medically -patient was evalauated by neurology on 06/29/2019 and hospitalists following recommendations on medical management -aspirin 81 mg and clopidogrel (plavix) 75 mg daily for 3 weeks then aspirin 81 mg for a life time to lower stroke risks home omeprazole medication can have drug interactions with clopidogrel so ranitidine is prescribed as substitute for Gastroesophageal Reflux atorvastatin as 40 mg daily to lower stroke risks (target LDL should be less than 70) and to treat dyslipidemia -discharge prescriptions sent electronically to [facility] pharmacy [address] [place] [id number] -Patient may continue home dose Lisinopril and Hydrochlorothiazide. Patient should follow up with primary care doctor to monitor blood pressure so that it meets a goal to less than 140/90 -echocardiogram was performed on 06/29/2019 in the hospital to rule out atrial septal defect; patient wishes to follow up echocardiogram results with primary care doctor -appointments 07/06/2019 11:00 AM Provider All Ramirez MD Department [facility] 08/02/2019 8:00 AM Provider Emilia Perea PA-C Department Neurology [facility] Discharge Diagnosis: TIA (transient ischemic attack), amaurosis fugax of left eye, Dyslipidemia, Hypertension, Gastroesophageal Reflux Total Time Total Time Spent Total Time Spent (In Minutes): 40 minutes Total Time Includes: Examination of the Patient, Discharge Planning, Medication Reconciliation and Communication With Other Providers Discharge Plan Discharge Items Patient Disposition: Home - Self-Care Reason For Visit: TIA Discharge Diagnosis: TIA (transient ischemic attack), amaurosis fugax of left eye, Dyslipidemia, Hypertension, Gastroesophageal Reflux Condition on Discharge: Good Activity: Resume your previous activity Non-emergency contact: Primary Care Provider and Neurologist Call non-emergency contact if: you have any medication questions Follow-up/Referrals: All Ramirez MD [Primary Care Provider] - Diet: Heart Healthy [place] Attending Provider Instructions: aspirin 81 mg and clopidogrel (plavix) 75 mg daily for 3 weeks then aspirin 81 mg for a life time to lower stroke risks home omeprazole medication can have drug interactions with clopidogrel so ranitidine is prescribed as substitute for Gastroesophageal Reflux atorvastatin as 40 mg daily to lower stroke risks (target LDL should be less than 70) and to treat dyslipidemia discharge prescriptions sent electronically to [facility] pharmacy [address] [place] [id number] Patient may continue home dose Lisinopril and Hydrochlorothiazide. Patient should follow up with primary care doctor to monitor blood pressure so that it meets a goal to less than 140/90 echocardiogram was performed on 06/29/2019 in the hospital to rule out atrial septal defect; patient wishes to follow up echocardiogram results with primary care doctor appointments 07/06/2019 11:00 AM Provider All Ramirez MD Department [facility] 08/02/2019 8:00 AM Provider Emilia Perea PA-C Department Neurology [facility] [employer] Provider Instructions: Risk Factors for Stroke: You can reduce your chances of stroke by working with your medical provider to adopt a healthy lifestyle. Some specific ways to lower your chance of stroke are: * If you are a smoker, now is the time to stop smoking cigarettes * If you are diabetic, improve the control of your blood sugars * Avoid excessive amounts of alcohol * Control high blood pressure * Lose weight if you are overweight * Be sure to lead an active lifestyle * Eat a healthy diet low in salt, cholesterol and fat You should know about other risk factors for stroke that you are unable to control. These include: * Age 55 years or older * Male gender * Certain racial groups: , or / * Family History of Stroke, Mini stroke or Heart Attack * Sickle Cell Disease Follow Up: It is important for you to keep your follow up appointments with your medical provider. Who to Call and When: Medical Emergencies: Call 911 immediately if you experience any of the following warning signs and symptoms of Stroke: * Sudden numbness or weakness of the face, arm or leg, especially on one side of the body * Sudden confusion, trouble speaking or understanding * Sudden trouble seeing in one or both eyes * Sudden trouble walking, dizziness, loss of balance or coordination * Sudden severe headache with no cause Do not delay calling 911 if you experience any warning signs or symptoms of a stroke. Delay in seeking medical attention may affect what treatments can be given to you. . Pending Studies at Discharge: Yes (echocardiogram performed on 06/29/2019) Stand-Alone Forms: My [facility], Smoking Cessation Medications and DC Order Prescriptions: New clopidogrel 75 mg Tablet 75 mg PO QAM 21 Days Qty: 21 RF: 0 aspirin [Ecotrin Low Strength] 81 mg Tablet,Delayed Release (Dr/Ec) 81 mg PO QAM 30 Days Qty: 30 RF: 0 atorvastatin 40 mg tablet 40 mg PO HS 30 Days Qty: 30 RF: 0 ranitidine HCl 150 mg capsule 150 mg PO DAILY Qty: 30 RF: 0 Continued hydrochlorothiazide 25 mg tablet 25 mg PO DAILY RF: 0 lisinopril 20 mg tablet 20 mg PO DAILY RF: 0 fluticasone propionate 50 mcg/actuation spray,suspension 2 spray INTRANASAL DAILY PRN (Reason: Congestion) RF: 0 citalopram 40 mg tablet 40 mg PO DAILY RF: 0 bupropion HCl 200 mg tablet sustained-release 12 hr 200 mg PO BID RF: 0 Discontinued omeprazole 20 mg capsule,delayed release(DR/EC) 20 mg PO QAM RF: 0 Discharge Orders: Discharge Order (Routine); Ordered 06/29/19 Ordered By: Feliberto Hawkins Admission Data Admit Date/Time: 06/28/19 20:04 Attending Provider: Feliberto Hawkins Admit Provider: Lewis Kelley Primary Care Provider: All Ramirez Other Providers: Marixa Mar ; Emilia Perea ; Sanket Pinto ; Emilia Ambriz ; Kenny Chandra
[2019-06-30] MEDS ORDERED: CLOPIDOGREL BISULFATE 75 MG TAB PO SCH (09:00)
--- NOTE | 2019-07-05 05:43 | Electrocardiogram Report ---
Test Reason : Blood Pressure : / mmHG Vent. Rate : 065 BPM Atrial Rate : 065 BPM P-R Int : 170 ms QRS Dur : 072 ms QT Int : 434 ms P-R-T Axes : 036 020 -09 degrees QTc Int : 451 ms Poor data quality, interpretation may be adversely affected Normal sinus rhythm Nonspecific ST and T wave abnormality Abnormal ECG When compared with ECG of 25-SEP-2012 09:06, No significant change was found Confirmed by James Zhu ([id number]) on 06/29/2019 9:46:02 AM Referred By: REFERRED SELF Confirmed By:James Zhu
== END 2019-06-29 17:05 | disposition home or self-care (01) ==
LOC: 2N 15:48 → ED 15:48 → 2N 20:42